=== PATIENT | male | born 1950 | race Caucasian/White ===

== ENCOUNTER → 2017-03-31 | Outpatient (CLI) | payer OTHER, BC ==
[~2017-03-31] MED LIST: ASPEC81 PO; KETO10TA PO; MULT-618 PO; OXYC-57 PO; OXYC-643 PO; RANI150T3 PO; VTMD1000 PO
--- NOTE | 2017-03-31 17:08 | DIAGNOSTIC IMAGING REPORT ---
LEFT THIGH MRI HISTORY: HAMSTRING INJURY; R/O AVULSION FROM ISCHIAL TECHNIQUE: Multiplanar multisequence MRI of the left thigh was performed without intravenous contrast. COMPARISON STUDY: None. FINDINGS: No fracture or dislocation within the left femur. 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 There is a full-thickness tear of the left hamstring tendon complex. This measures 2.6 cm of retraction. There is hemorrhage and fluid at the torn and retracted hamstring. There is also edema and intramuscular hemorrhage within the proximal hamstring muscles. There is fluid surrounding the left sciatic nerve. The left sciatic nerve demonstrates a normal signal intensity. Mild edema adjacent to the left groin muscles. There is subcutaneous edema within the left posterior thigh. No definite avulsion fracture identified at the ischial tuberosity. IMPRESSION: There is a full-thickness tear of the left hamstring tendon complex at its attachment which demonstrates 2.6 cm of retraction. No evidence for an avulsion fracture at the ischial tuberosity. Additional findings as described above. Electronically signed by: Reg Contreras M.D. 03/31/2017 5:07 PM Dictated Date/Time: 03/31/2017 5:02 PM
== END | disposition home or self-care (01) ==
LOC: C.MRIBC 15:18
DX: S76.312A Strain of muscle, fascia and tendon of the posterior muscle group at thigh level, left thigh, initial encounter (principal); X58.XXXA Exposure to other specified factors, initial encounter

== ENCOUNTER → 2017-04-03 | Outpatient (CLI) | payer OTHER, BC ==
[2017-04-03 17:17] LABS: BASO % 0.5 %; BASO ABS # 0.03 K/uL (0-0.2); COMPLETE YES; EOS % 4.6 %; HEMATOCRIT 39.2 % (42-52); IG% 0.2 %; LYMPH % 20.5 %; LYMPH ABS # 1.34 K/uL (1.2-3.4); MEAN CELL VOLUME 90.5 fL (80-100); MEAN CORPUSCULAR HEMOGLOBIN 30.7 pg (25-34); MEAN CORPUSCULAR HGB CONC 33.9 g/dl (32-36); MEAN PLATELET VOLUME 9.3 fL (7.4-10.4); NEUT % 60.2 %; PLATELET COUNT 247 K/uL (130-400); RED BLOOD COUNT 4.33 M/uL (4.7-6.1); WHITE BLOOD COUNT 6.55 K/uL (4.8-10.8)
[2017-04-03 17:34] LABS: POTASSIUM 4.7 mmol/L (3.5-5.1)
== END | disposition home or self-care (01) ==
LOC: C.LAB 15:58
PROVIDERS: ATTEND Orthopaedic Surgery Sports Medicine
DX: Z01.812 Encounter for preprocedural laboratory examination (principal); Z01.818 Encounter for other preprocedural examination

== ENCOUNTER → 2017-04-05 | Day surgery (SDC) | payer OTHER, BC ==
[2017-04-04 11:09] VITALS: Ht 179.1 cm; Wt 84.1 kg
[~2017-04-05] VITALS: Ht 179.1 cm; Wt 84.1 kg
[~2017-04-05] MED LIST changes: +BUPIVACAINE/EPINEPHRINE 0.5% MPF 1:200,000 30 ML VIAL ONE; +DEXAMETHASONE SOD INJ 4 MG/ML VIAL ONE; +EpHEDrine SULFATE 50MG/5ML SYR ONE; +FENTANYL CITRATE INJ 50 MCG/1 ML 2 ML VIAL ONE; +GLYCOPYRROLATE INJ 0.2 MG/ML VIAL ONE; +LACTATED RINGER'S 1000ML 1,000 ML IV SCH; +LIDOCAINE HCL 1% MPF 2 ML VIAL ONE; +LIDOCAINE HCL 2% 2 ML VIAL (20MG/ML) ONE; +MIDAZOLAM HCL 1 MG/ML 2ML VIAL ONE; +NEOSTIGMINE METHYLSULFATE 5 MG/5 ML SYR ONE; +ONDANSETRON INJ 2 MG/ML 2 ML VIAL IV ONE; +ONDANSETRON INJ 2 MG/ML 2 ML VIAL ONE; +OXYCODONE/ACETAMINOPHEN 5-325 TAB PO PRN; +PATIENT'S HEIGHT AND/OR WEIGHT NEEDED SCH; +PROPOFOL IV EMULSION 10 MG/ML 20 ML VIAL IV ONE; +ROCURONIUM BROMIDE 10 MG/ML 5 ML VIAL ONE; +ROPIVACAINE 0.5% 5 MG/ML 30 ML VIAL ONE; +SODIUM CHLORIDE 0.9% 1000ML 1,000 ML IV SCH; +VANCOMYCIN HCL 1000MG/20ML VIAL ONE; +VANCOMYCIN INJ 2,000 MG in SODIUM CHLORIDE 0.9% 500ML 500 ML IV SCH; +WATER, STERILE FOR INJ 10 ML VIAL ONE
--- NOTE | 2017-04-05 13:20 | History & Physical Bridge - [place] ---
H&P Re-Evaluation Bridge Note: I have examined the patient, reviewed the History & Physical and in the interval since the performance of the History & Physical I have noted the following changes of clinical significance: No changes noted
--- NOTE | 2017-04-05 16:13 | [facility] Post Operative Brief Note ---
Immediate Operative Summary Operative Date April 05, 2017. Pre-Operative Diagnosis Left Proximal Hamstring Rupture Post-Operative Diagnosis Same Procedure(s) Performed Left Proximal Hamstring Rupture Repair Surgeon Dr. Mercedes Campaign Fundraiser Surgeon(s) Jessy Strauss PA-C Estimated Blood Loss 30 ML Findings Left Proximal Hamstring Avulsion Specimens None Anesthesia General Complication(s) None Disposition Recovery Room / PACU
--- NOTE | 2017-04-05 16:15 | Discharge Instructions-SurgCtr ---
Discharge Instructions Date of Service April 05, 2017. Visit Reason for Visit: Left Proximal Hamstring Rupture Discharge Discharge Diagnosis / Problem: left proximal hamstring rupture Discharge Goals Goal(s): Improve function, Therapeutic intervention Activity Recommendations Activity Limitations: per Instructions/Follow-up section Weightbearing Status: Left non-weightbearing Anesthesia . Post Anesthesia Instructions: If you have had General Anesthesia or IV Sedation: * Do not drive today. * Resume driving when surgeon permits. * Do not make important decisions or sign legal documents today. * Call surgeon for: 1. Temperature elevations greater than 101 degrees F. 2. Uncontrollable pain. 3. Excessive bleeding. 4. Persistent nausea and vomiting. 5. Medication intolerance (nausea, vomiting or rash). * For nausea and vomiting use only clear liquids such as: tea, soda, bouillon until nausea subsides, then gradually increase diet as tolerated. * If you have any concerns or questions, call your surgeon's office. If physician is unavailable and it is an emergency, call 911 or go to the nearest emergency room. . Instructions / Follow-Up Instructions / Follow-Up MEDICATIONS: * Resume previous medications unless instructed otherwise by your surgeon. * Always take pain medication on a full stomach or with food to avoid upset stomach. * Do not drink alcohol or drive while taking narcotics. * Ibuprofen or Tylenol may be taken if narcotic not needed. SPECIAL CARE INSTRUCTIONS: __ None __ Keep extremity elevated and iced x 48 hours; apply ice 20-30 minutes 8-10 times/day. May remove at night. _x_ Crutches __ May discard when able _x_ Brace/Post-op shoe _x_ 24 hrs/day __ Remove at night _x_ Dressing __ Maintain until seen in office, may shower with plastic over site x__ Remove dressings in 48 hours and then may shower x__ Cover incisions with band-aids after showering __ Do not remove steri-strips Call physician if chills or temperature rises above 102 degrees or pain unrelieved by prescribed pain medications. Office [phone] follow up in 2 weeks Diet Recommendations Home Diet: resume previous diet Procedures Procedures Performed: Left Proximal Hamstring Rupture Repair Pending Studies Studies pending at discharge: no Medical Emergencies . Who to Call and When: Medical Emergencies: If at any time you feel your situation is an emergency, please call 911 immediately. . Non-Emergent Contact Non-Emergency issues call your: Surgeon . . "Provider Documentation" section prepared by Tyrone Strauss. .
[2017-04-05 16:46] VITALS: TEMP 36.6
--- NOTE | 2017-04-05 16:55 | Anesthesia Progress Nt - [facility] ---
Anesthesia Post Op Note Date & Time April 05, 2017 at 16:55 Vital Signs Pain Intensity: 3 Vital Signs Past 12 Hours Date Time Temp Pulse Resp B/P Pulse Ox O2 Delivery O2 Flow Rate FiO2 04/05/17 16:41 124/78 04/05/17 16:40 68 4 04/05/17 16:40 67 4 96 04/05/17 16:39 36.6 69 12 124/78 96 Room Air 04/05/17 16:36 126/80 04/05/17 16:35 71 9 04/05/17 16:35 71 9 95 04/05/17 16:31 132/76 04/05/17 16:30 68 16 99 04/05/17 16:30 70 16 04/05/17 16:26 124/73 04/05/17 16:25 70 23 04/05/17 16:25 70 23 100 04/05/17 16:21 124/73 04/05/17 16:20 70 12 04/05/17 16:20 70 12 100 04/05/17 16:16 123/78 04/05/17 16:15 75 18 04/05/17 16:15 74 18 100 04/05/17 16:11 126/82 04/05/17 16:10 36.7 73 16 126/82 100 Mask 6 04/05/17 16:10 76 99 04/05/17 16:10 76 04/05/17 11:04 36.4 79 18 123/71 99 Room Air Notes Mental Status: alert / awake / arousable, participated in evaluation Pt Amnestic to Procedure: Yes Nausea / Vomiting: adequately controlled Pain: adequately controlled Airway Patency, RR, SpO2: stable & adequate BP & HR: stable & adequate Hydration State: stable & adequate Anesthetic Complications: no major complications apparent
[2017-04-05 17:39] VITALS: BP 132/72; O2SAT 97
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
== END | disposition home or self-care (01) ==
LOC: X.SURG 10:48
PROVIDERS: ATTEND Orthopaedic Surgery Sports Medicine
DX: S76.312A Strain of muscle, fascia and tendon of the posterior muscle group at thigh level, left thigh, initial encounter (principal); V19.9XXA Pedal cyclist (driver) (passenger) injured in unspecified traffic accident, initial encounter; G47.33 Obstructive sleep apnea (adult) (pediatric); Z85.828 Personal history of other malignant neoplasm of skin; Z98.890 Other specified postprocedural states; Z80.1 Family history of malignant neoplasm of trachea, bronchus and lung

== ENCOUNTER → 2017-12-26 | Outpatient (CLI) | payer OTHER, BC ==
[~2017-12-26] MED LIST changes: -BUPIVACAINE/EPINEPHRINE 0.5% MPF 1:200,000 30 ML VIAL ONE; -DEXAMETHASONE SOD INJ 4 MG/ML VIAL ONE; -EpHEDrine SULFATE 50MG/5ML SYR ONE; -FENTANYL CITRATE INJ 50 MCG/1 ML 2 ML VIAL ONE; -GLYCOPYRROLATE INJ 0.2 MG/ML VIAL ONE; -KETO10TA PO; -LACTATED RINGER'S 1000ML 1,000 ML IV SCH; -LIDOCAINE HCL 1% MPF 2 ML VIAL ONE; -LIDOCAINE HCL 2% 2 ML VIAL (20MG/ML) ONE; -MIDAZOLAM HCL 1 MG/ML 2ML VIAL ONE; -NEOSTIGMINE METHYLSULFATE 5 MG/5 ML SYR ONE; -ONDANSETRON INJ 2 MG/ML 2 ML VIAL IV ONE; -ONDANSETRON INJ 2 MG/ML 2 ML VIAL ONE; -OXYC-57 PO; -OXYC-643 PO; -OXYCODONE/ACETAMINOPHEN 5-325 TAB PO PRN; -PATIENT'S HEIGHT AND/OR WEIGHT NEEDED SCH; -PROPOFOL IV EMULSION 10 MG/ML 20 ML VIAL IV ONE; -ROCURONIUM BROMIDE 10 MG/ML 5 ML VIAL ONE; -ROPIVACAINE 0.5% 5 MG/ML 30 ML VIAL ONE; -SODIUM CHLORIDE 0.9% 1000ML 1,000 ML IV SCH; -VANCOMYCIN HCL 1000MG/20ML VIAL ONE; -VANCOMYCIN INJ 2,000 MG in SODIUM CHLORIDE 0.9% 500ML 500 ML IV SCH; -WATER, STERILE FOR INJ 10 ML VIAL ONE
[2017-12-26 09:47] LABS: HEMOGLOBIN A1C 5.7 % (4.5-5.6)
== END | disposition home or self-care (01) ==
LOC: C.LAB 07:06
PROVIDERS: ATTEND Family Medicine
DX: M25.50 Pain in unspecified joint (principal); Z95.2 Presence of prosthetic heart valve; N40.0 Benign prostatic hyperplasia without lower urinary tract symptoms

== ENCOUNTER 2018-01-30 10:43 | Emergency (ER) | payer OTHER, BC ==
[~2018-01-30] VITALS: Ht 177.8 cm; Wt 92.9 kg
[2018-01-30 10:51] VITALS: TEMP 36.4; Ht 177.8 cm; Wt 92.9 kg
[2018-01-30] MEDS ORDERED: ASPI-435 PO (11:28)
[2018-01-30] MEDS ORDERED: DOCU-94 PO (11:28)
[2018-01-30] MEDS ORDERED: SODIUM CHLORIDE 0.9% 1000ML 1,000 ML IV ONE (11:57)
[2018-01-30] MEDS ORDERED: SODIUM CHLORIDE 0.9% 1000ML 1,000 ML IV STA (11:57)
[2018-01-30] MEDS ORDERED: OPTIRAY 320 IV PRN (12:15)
[2018-01-30 12:16] LABS: BASO % 0.4 %; BASO ABS # 0.03 K/uL (0-0.2); EOS % 1.7 %; EOS ABS # 0.14 K/uL (0-0.5); HEMATOCRIT 44.4 % (42-52); HEMOGLOBIN 15.9 g/dL (14.0-18.0); IG# 0.01 K/uL (0.00-0.02); LYMPH % 19.5 %; LYMPH ABS # 1.61 K/uL (1.2-3.4); MEAN CELL VOLUME 88.4 fL (80-100); MEAN CORPUSCULAR HEMOGLOBIN 31.7 pg (25-34); MEAN CORPUSCULAR HGB CONC 35.8 g/dl (32-36); MEAN PLATELET VOLUME 9.6 fL (7.4-10.4); MONO % 9.1 %; MONO ABS # 0.75 K/uL (0.11-0.59); NEUT % 69.2 %; NEUT ABS # 5.72 K/uL (1.4-6.5); PLATELET COUNT 202 K/uL (130-400); RED CELL DISTRIBUTION WIDTH CV 13.4 % (11.5-14.5); RED CELL DISTRIBUTION WIDTH SD 43.3 fL (36.4-46.3); WHITE BLOOD COUNT 8.26 K/uL (4.8-10.8)
[2018-01-30 12:34] LABS: CALCIUM 9.5 mg/dl (8.5-10.1); CREATININE 1.17 mg/dl (0.60-1.40); POTASSIUM 5.1 mmol/L (3.5-5.1)
[2018-01-30 12:36] LABS: TOTAL PROTEIN 6.9 gm/dl (6.4-8.2)
--- NOTE | 2018-01-30 13:27 | DIAGNOSTIC IMAGING REPORT ---
LUMBAR SPINE WITHOUT CT DOSE: HISTORY: Pain. Neuropathy. eval for spinal disease TECHNIQUE: Multiaxial CT images of the lumbar spine were performed and reformatted in the sagittal and coronal plane without the use of contrast. A dose lowering technique was utilized adhering to the principles of ALARA. COMPARISON: None. FINDINGS: No fractures. No subluxation. Paraspinal soft tissues are unremarkable. No evidence for significant spinal stenosis based on CT criteria. IMPRESSION: Negative study. The above report was generated using voice recognition software. It may contain grammatical, syntax or spelling errors. Electronically signed by: Rene Martínez M.D. 01/30/2018 1:26 PM Dictated Date/Time: 01/30/2018 1:22 PM
--- NOTE | 2018-01-30 13:41 | DIAGNOSTIC IMAGING REPORT ---
ABD/PELVIS IV CONTRAST ONLY CLINICAL HISTORY: 67 years-old Male presenting with eval for bowel obstruction, constipation. TECHNIQUE: Multidetector CT of the abdomen and pelvis was performed after the administration of intravenous contrast. IV contrast: 119 mL of Optiray 320. A dose lowering technique was used consistent with the principles of ALARA (as low as reasonably achievable). COMPARISON: None. CT DOSE (mGy.cm): The estimated cumulative dose is 541.28 mGy.cm. FINDINGS: Scientist Propagator topogram: Median sternotomy wires. Lung bases: Minimal basilar opacities, likely atelectasis. Biatrial enlargement. Mitral annular calcification. No pericardial or pleural effusion. Liver: Normal morphology. No liver lesion. Patent hepatic vasculature. Biliary: No intrahepatic or extrahepatic biliary ductal dilatation. Gallbladder contains gallstones. Pancreas: Normal. Spleen: Normal. Adrenal glands: Normal. Kidneys and ureters: Well-defined hypodensities in the kidneys likely simple cysts. Malrotation of the right kidney with an anteriorly oriented right renal pelvis. Nonobstructing 4 mm calculi in the right kidney at the interpolar region and lower pole. Mild right urothelial thickening. Ptotic/pelvic left kidney, which is also malrotated with an anteriorly oriented left renal pelvis. Prominent left parapelvic cyst. Nonobstructing 3 mm calculi in the left kidney. Bladder: Decompressed with a Mckenna catheter. Foci of intraluminal gas related to catheterization. Mild perivesicular fat stranding. Pelvic organs: Prostate and seminal vesicles normal. Bowel: Large stool burden in the rectum. No significant rectal wall thickening. Mild stool burden in the remainder of the colon, which is normal caliber. No bowel obstruction. Peritoneal cavity: No free fluid or intraperitoneal gas. Lymph nodes: No enlarged lymph nodes in the abdomen or pelvis. Vasculature: Atherosclerosis of the normal caliber abdominal aorta. IVC patent. 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 Abdominal wall: Evidence of prior right inguinal hernia repair with a recurrent fat-containing hernia. Fat-containing right inguinal hernia. Musculoskeletal: Normal. IMPRESSION: 1. Large stool burden in the rectum. Consider disimpaction. No bowel obstruction. Mild stool burden in the remainder of the colon. 2. 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 Bilateral nonobstructing renal calculi. Subtle right urothelial thickening could suggest chronic inflammation or upper tract infection. Correlate with urinalysis. 3. Possible perivesicular inflammatory change. Again, correlate with urinalysis to exclude infectious cystitis. Alternatively, the appearance may be due to decompression with a Mcknena catheter and/or adjacent postsurgical changes from prior inguinal hernia repair on the left. Electronically signed by: Humberto Tomlinson M.D. 01/30/2018 1:40 PM Dictated Date/Time: 01/30/2018 1:24 PM
[2018-01-30 15:04] VITALS: BP 129/70; PULSE 64; O2SAT 96
--- NOTE | 2018-01-30 15:05 | EMERGENCY ROOM VISIT NOTE ---
History Report prepared by Hayden: Damaso Jorgensen Under the Supervision of: Dr. He Gonzalez M.D. First contact with patient: 11:40 Chief Complaint: UNABLE TO VOID Stated Complaint: SEVERE ABDONIMAL PAIN, CANT DEFECATE OR URINATE Nursing Triage Summary: pt reports not able to urine except dribbles this am last emptied bladder last evening. no bm since yesterday. pt reports he was seen by pcp 1 month ago blood work was good not dx with enlarged prostate History of Present Illness The patient is a 67 year old male who presents to the Emergency Room with complaints of constant inability to urinate or defecate beginning today. He states that he was able to urinate a very small amount today, but has not been able to defecate at all. The patient also complains of rectal spasms, abdominal pain, and bilateral leg & lower back numbness. His lower back and bilateral leg numbness began upon arrival to the ED. He denies any back pain, fevers, or chills. Nothing has improved his symptoms. The patient denies any recent falls or injuries (other than two weeks ago, where he fell on his upper back). He has been able to walk, but only "slowly". He went for a several mile walk this morning as normal. The patient states that he attempted to go to the bathroom upon returning form his walk, which is normally when he goes to the bathroom each day. He adds that he has been having increasing difficulty with defecation over the past week each day. He notes that he has a history of hypotension for which he was told to drink coffee regularly. 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 Source of History: patient, spouse/significant other Onset: Today Quality: other (inability to urinate or defecate) Timing: constant Modifying Factors (Relieving): other (none) Associated Symptoms: + abdominal pain, + numbness (lower back and bilateral legs) Note: The patient also complains of rectal spasms. Review of Systems See HPI for pertinent positives & negatives. A total of 10 systems reviewed and were otherwise negative. Past Medical & Surgical Medical Problems: (1) Bee sting allergy (2) Heart disease (3) History of kidney stones (4) Incisional hernia (5) Melanoma Surgical Problems: (1) H/O mitral valve replacement (2) History of aortic valve repair (3) History of mitral valve repair Old medical records were reviewed. Nurse's notes were reviewed and I agree with. Family History Diabetes mellitus FH: cancer FH: heart disease FH: lung disease Hypertension Kidney disease Kidney stones Social History Smoking Status: Never Smoker Alcohol Use: occasionally Drug Use: none Marital Status: Housing Status: lives with family Occupation Status: employed Current/Historical Medications Scheduled Aspirin (Aspirin 81), 81 MG PO DAILY Cholecalciferol (Vitamin D3), 1,000 INTER.UNIT PO QAM Docusate Sodium (Colace), 100 MG PO DAILY Multiple Vitamins W/ Minerals (Centrum Silver Ultra Mens), 1 TABLET PO QAM Ranitidine Hcl (Zantac), 150 MG PO BID Allergies Coded Allergies: BEE STING (Verified Allergy, Severe, RASH, DIZZY, SOB, 01/30/18) Cefuroxime (Verified Allergy, Severe, RASH AND DIFFICULTY BREATHING, ) Physical Exam Vital Signs Date Time Temp Pulse Resp B/P (MAP) Pulse Ox O2 Delivery O2 Flow Rate FiO2 01/30/18 15:04 64 18 129/70 96 01/30/18 14:18 66 18 135/74 96 Room Air 01/30/18 12:15 71 18 114/78 97 Room Air 01/30/18 10:51 36.4 70 18 154/84 99 Room Air Physical Exam General: Non-ill appearing older male in no acute distress. Appears uncomfortable. Complaining of urge to defecate. HEENT: Normal cephalic atraumatic. Pupils are equal round and reactive to light. Extraocular movements are intact. Oropharynx is pink with moist mucous membranes. No swelling of the mouth lips or tongue. Neck: Supple with a midline trachea. No meningeal signs or stiffness, no JVD or bruits. No Stridor. Chest: Clear to auscultation bilaterally. No wheezes or rhonchi. No increased work of breathing. Heart: regular rate and rhythm. Abdomen: Soft, nondistended without rebound guarding or rigidity. Mild lower tenderness. Scars from previous abdominal surgery. No redness or warmth. Mckenna catheter in place draining yellow urine. Rectal: Normal sensation in the perirectal area. Normal tone. There is a large amount of stool which was manually disimpacted and was brown and nonbloody and guaiac negative Extremities: No cyanosis clubbing or edema. No calf tenderness or assymetry Spine/Back. Non tender to palpation. No CVA tenderness Skin: Good turgor without rashes. Neurologic exam: Cranial nerves two through 12 are intact. Motor and sensation are intact and symmetrical throughout. Medical Decision & Procedures ER Provider Diagnostic Interpretation: Radiology results as stated below per my review and radiologist interpretation: LUMBAR SPINE WITHOUT FINDINGS: No fractures. No subluxation. Paraspinal soft tissues are unremarkable. No evidence for significant spinal stenosis based on CT criteria. IMPRESSION: Negative study. The above report was generated using voice recognition software. It may contain grammatical, syntax or spelling errors. Electronically signed by: Rene Martínez M.D. 01/30/2018 1:26 PM ABD/PELVIS IV CONTRAST ONLY FINDINGS: [employer] Head topogram: Median sternotomy wires. Lung bases: Minimal basilar opacities, likely atelectasis. Biatrial enlargement. Mitral annular calcification. No pericardial or pleural effusion. Liver: Normal morphology. No liver lesion. Patent hepatic vasculature. Biliary: No intrahepatic or extrahepatic biliary ductal dilatation. Gallbladder contains gallstones. Pancreas: Normal. Spleen: Normal. Adrenal glands: Normal. Kidneys and ureters: Well-defined hypodensities in the kidneys likely simple cysts. Malrotation of the right kidney with an anteriorly oriented right renal pelvis. Nonobstructing 4 mm calculi in the right kidney at the interpolar region and lower pole. Mild right urothelial thickening. Ptotic/pelvic left kidney, which is also malrotated with an anteriorly oriented left renal pelvis. Prominent left parapelvic cyst. Nonobstructing 3 mm calculi in the left kidney. Bladder: Decompressed with a Mckenna catheter. Foci of intraluminal gas related to catheterization. Mild perivesicular fat stranding. Pelvic organs: Prostate and seminal vesicles normal. Bowel: Large stool burden in the rectum. No significant rectal wall thickening. Mild stool burden in the remainder of the colon, which is normal caliber. No bowel obstruction. Peritoneal cavity: No free fluid or intraperitoneal gas. Lymph nodes: No enlarged lymph nodes in the abdomen or pelvis. Vasculature: Atherosclerosis of the normal caliber abdominal aorta. IVC patent. 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 Abdominal wall: Evidence of prior right inguinal hernia repair with a recurrent fat-containing hernia. Fat-containing right inguinal hernia. Musculoskeletal: Normal. IMPRESSION: 1. Large stool burden in the rectum. Consider disimpaction. No bowel obstruction. Mild stool burden in the remainder of the colon. 2. 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 Bilateral nonobstructing renal calculi. Subtle right urothelial thickening could suggest chronic inflammation or upper tract infection. Correlate with urinalysis. 3. Possible perivesicular inflammatory change. Again, correlate with urinalysis to exclude infectious cystitis. Alternatively, the appearance may be due to decompression with a Mckenna catheter and/or adjacent postsurgical changes from prior inguinal hernia repair on the left. Electronically signed by: Humberto Tomlinson M.D. 01/30/2018 1:40 PM Laboratory Results 01/30/18 12:05 Red Blood Count 5.02, Mean Corpuscular Volume 88.4, Mean Corpuscular Hemoglobin 31.7, Mean Corpuscular Hemoglobin Concent 35.8, Mean Platelet Volume 9.6, Neutrophils (%) (Auto) 69.2, Lymphocytes (%) (Auto) 19.5, Monocytes (%) (Auto) 9.1, Eosinophils (%) (Auto) 1.7, Basophils (%) (Auto) 0.4, Neutrophils # (Auto) 5.72, Lymphocytes # (Auto) 1.61, Monocytes # (Auto) 0.75, Eosinophils # (Auto) 0.14, Basophils # (Auto) 0.03 01/30/18 12:05 Test 01/30/18 10:56 01/30/18 12:05 Urine Color YELLOW Urine Appearance CLEAR (CLEAR) Urine pH 5.0 (4.5-7.5) Urine Specific [place] 1.011 (1.000-1.030) Urine Protein NEG (NEG) Urine Glucose (UA) NEG (NEG) Urine Ketones NEG (NEG) Urine Occult Blood NEG (NEG) Urine Nitrite NEG (NEG) Urine Bilirubin NEG (NEG) Urine Urobilinogen NEG (NEG) Urine Leukocyte Esterase NEG (NEG) White Blood Count 8.26 K/uL (4.8-10.8) Red Blood Count 5.02 M/uL (4.7-6.1) Hemoglobin 15.9 g/dL (14.0-18.0) Hematocrit 44.4 % (42-52) Mean Corpuscular Volume 88.4 fL (80-100) Mean Corpuscular Hemoglobin 31.7 pg (25-34) Mean Corpuscular Hemoglobin Concent 35.8 g/dl (32-36) Platelet Count 202 K/uL (130-400) Mean Platelet Volume 9.6 fL (7.4-10.4) Neutrophils (%) (Auto) 69.2 % Lymphocytes (%) (Auto) 19.5 % Monocytes (%) (Auto) 9.1 % Eosinophils (%) (Auto) 1.7 % Basophils (%) (Auto) 0.4 % Neutrophils # (Auto) 5.72 K/uL (1.4-6.5) Lymphocytes # (Auto) 1.61 K/uL (1.2-3.4) Monocytes # (Auto) 0.75 K/uL (0.11-0.59) Eosinophils # (Auto) 0.14 K/uL (0-0.5) Basophils # (Auto) 0.03 K/uL (0-0.2) RDW Standard Deviation 43.3 fL (36.4-46.3) RDW Coefficient of Variation 13.4 % (11.5-14.5) Immature Granulocyte % (Auto) 0.1 % Immature Granulocyte # (Auto) 0.01 K/uL (0.00-0.02) Anion Gap 9.0 mmol/L (3-11) Est Creatinine Clear Calc Drug Dose 68.2 ml/min Estimated GFR () 73.3 Estimated GFR (Non- 63.2 BUN/Creatinine Ratio 17.3 (10-20) Calcium Level 9.5 mg/dl (8.5-10.1) Total Bilirubin 1.0 mg/dl (0.2-1) Direct Bilirubin 0.2 mg/dl (0-0.2) Aspartate Amino Transf (AST/SGOT) 25 U/L (15-37) Alanine Aminotransferase (ALT/SGPT) 30 U/L (12-78) Alkaline Phosphatase 90 U/L (45-117) Total Protein 6.9 gm/dl (6.4-8.2) Albumin 4.0 gm/dl (3.4-5.0) Lipase 181 U/L (73-393) Laboratory studies as stated above per my review. Medications Administered Medications (Trade) Dose Ordered Sig/Stewart Route Start Time Stop Time Status Last Admin Dose Admin Sodium Chloride 1,000 ml @ 999 mls/hr Q1H1M STAT IV 01/30/18 11:57 01/30/18 12:57 DC 01/30/18 12:14 999 MLS/HR Sodium Chloride 1,000 ml @ 200 mls/hr Q5H ONCE IV 01/30/18 11:57 01/30/18 16:36 DC 01/30/18 11:57 200 MLS/HR ED Course 1141: Past medical records reviewed. The patient was evaluated in room B2, and a complete history and physical examination were performed. 1157: Ordered Sodium Chloride 1000 ml @ 200 mls/hr IV, Sodium Chloride 1000 ml @ 999 mls/hr IV. 1325: I reassessed the patient. He feels better. 1442: Upon reevaluation, the patient is resting comfortably. I discussed the results and treatment plan with him. He verbalized agreement of the treatment plan. The patient was discharged home. Medical Decision Differentials include, but are not limited to; constipation, bowel obstruction, infection, UTI, cauda equina syndrome, and electrolyte or metabolic abnormality. This patient comes in as described above. He was complaining of feeling like he was constipated as well as may have difficulty urinating. This came on abruptly. A Mckenna catheter was placed prior to my arrival. he states was complaining of severe rectal pain and had a hard time sitting down. He has had no trauma. Initially told me he felt he was tingling in his legs but then felt like it was just from the way he was sitting. he has no numbness or weakness. On exam, he has no evidence of cauda equina syndrome. IV access was established hydrated with IV normal saline. He has no white count or fever to suggest infection. No acute electrolyte or metabolic abnormalities. His urine does not suggest infection. I did a CAT scan of his abdomen and lumbar spine lumbar spine was unremarkable. The abdomen shows constipation and rectal impaction. I did a rectal exam and manually disimpacted him a large amount and he said he felt 100% better. It was guaiac negative he did have normal rectal tone. I talked to the patient and his at length he feels that his symptoms were from being constipated now he feels better. I talked about the possibility of MRI do not think is likely a neurologic reason. he is going to go home if if this recurs or any changes in her return to the ER. Again at this point he has no neurologic deficits. He will be discharged home and is encouraged to use a stool softener and return if any new problems or concerns. He is happy to plan discharged to home. Medication Reconcilliation Current Medication List: was personally reviewed by me Blood Pressure Screening Patient's blood pressure: Normal blood pressure Blood pressure disposition: Did not require urgent referral Impression Primary Impression: Constipation Additional Impressions: Abdominal pain Rectal pain Scribe Attestation The scribe's documentation has been prepared under my direction and personally reviewed by me in its entirety. I confirm that the note above accurately reflects all work, treatment, procedures, and medical decision making performed by me. Departure Information Dispostion Home / Self-Care Referrals Antonino Jones M.D. (PCP) Forms HOME CARE DOCUMENTATION FORM, IMPORTANT VISIT INFORMATION, WORK / SCHOOL INSTRUCTIONS Patient Instructions My [facility] NCR [facility] Additional Instructions Rest. Drink plenty of fluids. Ensure that your bowels are moving and use a stool softener if needed Return if: Any further problems with bowel or bladder, numbness or weakness, fever chills, any new problems or concerns Follow-up with your doctor next couple days for recheck Problem Qualifiers
== END 2018-01-30 15:05 | disposition home or self-care (01) ==
LOC: C.EDB 10:45
DX: K59.00 Constipation, unspecified (principal); R10.9 Unspecified abdominal pain; K62.89 Other specified diseases of anus and rectum; R33.9 Retention of urine, unspecified; Z91.030 Bee allergy status; Z95.2 Presence of prosthetic heart valve; Z85.820 Personal history of malignant melanoma of skin; Z87.442 Personal history of urinary calculi; Z79.82 Long term (current) use of aspirin; Z83.3 Family history of diabetes mellitus; Z82.49 Family history of ischemic heart disease and other diseases of the circulatory system; Z84.1 Family history of disorders of kidney and ureter; Z88.1 Allergy status to other antibiotic agents

== ENCOUNTER 2018-12-31 18:26 | Observation (INO) ==
[2018-12-31] MEDS ORDERED: SODIUM CHLORIDE 0.9% 1000ML 1,000 ML IV SCH (18:45)
[2018-12-31 19:29] LABS: Albumin Level 3.6 gm/dl (3.4-5.0); BUN Creatinine Ratio 25.9 (10-20); Calcium 8.5 mg/dl (8.5-10.1); Creatinine Clr Calc Pharmacy 67.6 ml/min; Est GFR (Non-African American) 71.6
[2018-12-31 19:34] LABS: Albumin Globulin Ratio 1.1 (0.9-2); Bilirubin,Total 0.7 mg/dl (0.2-1); Globulin 3.3 gm/dl (2.5-4.0); Potassium 4.3 mmol/L (3.5-5.1); Total Protein 6.9 gm/dl (6.4-8.2)
[2018-12-31 20:13] LABS: Basophils # (auto) 0.03 K/uL (0-0.2); Basophils % (auto) 0.5 %; Eosinophils % (auto) 4.7 %; Hematocrit (blood only) 44.7 % (42-52); Hemoglobin 15.4 g/dL (14.0-18.0); Immature Granulocytes # (auto) 0.01 K/uL (0.00-0.02); Immature Granulocytes % (auto) 0.2 %; Lymphocytes # (auto) 1.94 K/uL (1.2-3.4); Lymphocytes % (auto) 30.1 %; Mean Corpuscular Hgb Conc 34.5 g/dL (32-36); Mean Corpuscular Volume 90.1 fL (80-100); Monocytes # (auto) 0.78 K/uL (0.11-0.59); Monocytes % (auto) 12.1 %; Neutrophils # (auto) 3.39 K/uL (1.4-6.5); Neutrophils % (auto) 52.4 %; Platelet Count 208 K/uL (130-400); RDW Coefficient of Variation 13.5 % (11.5-14.5); RDW Standard Deviation 44.5 fL (36.4-46.3); Red Blood Count 4.96 M/uL (4.7-6.1); White Blood Count 6.45 K/uL (4.8-10.8)
[2018-12-31 20:28] LABS: Partial Thromboplastin Time 26.6 Seconds (21.0-31.0); Prothrombin Time 10.1 Seconds (9.0-12.0)
[2018-12-31 21:09] LABS: Appearance Urine Clear (Clear); Bilirubin Urine Negative (Negative); Blood Urine Negative (Negative); Color Urine Yellow; Glucose Urine UA Negative (Negative); Ketones Urine Negative (Negative); Leukocyte Esterase Urine Negative (Negative); Nitrite Urine Negative (Negative); Protein Urine Negative (Negative); Specific Gravity Urine 1.015 (1.000-1.030); Urobilinogen Urine Negative (Negative)
--- NOTE | 2018-12-31 21:20 | History & Physical Report ---
Date of Service December 31, 2018 Assessment & Plan (1) Subdural hematoma: Subdural hematoma-- The patient will be placed in observation overnight on telemetry unit. Dr. Martinez from the ED has spoken with Dr. Duong from [facility] neurosurgery who felt the patient could stay at [facility]. Dr. Martinez then spoke with Dr. Martinez from [facility] neurology, who also felt the patient could be observed at [facility]. Patient will get a repeat CT scan of the head in the morning. He knows to report any change in symptoms or if new symptoms should they develop in the interim. Present on Admission?: Yes History of Present Illness Chief Complaint: The patient presents to the emergency department after being referred by his PCP Dr. Jones for an abnormal CT of head which showed a left frontal subdural hematoma. Primary Care Provider: Antonino Jones The patient is a 68-year-old male who was skiing and previous [place] 6 days ago when he slipped and went backwards, landing on his shoulder and then his head. He went to see his PCP Dr. Emerson today, who ordered a CT scan, that showed a left frontal subdural hematoma, and referred the patient to the ED for assessment. The patient overall has little complaints, he said he feels a little funny, and has some cervical occipital pain, which has improved. Allergies Allergy/AdvReac Type Severity Reaction Status Date / Time bee venom protein (honey bee) Allergy Severe RASH, Verified 12/31/18 20:12 DIZZY, SOB cefuroxime Allergy Severe RASH AND Verified 12/31/18 20:12 DIFFICULTY BREATHING Home Medications Home Medications Medication Instructions Recorded Confirmed Type aspirin [Aspir-81] 81 mg PO DAILY 12/31/18 12/31/18 History cholecalciferol (vitamin D3) 1,000 unit PO DAILY 12/31/18 12/31/18 History [Vitamin D3] tjkrujni-yeb-JG-lycopen-lutein 1 tab PO DAILY 12/31/18 12/31/18 History [Centrum Silver Ultra Men's] Past Med/Surg History Medical History Bee sting allergy (Chronic) Heart disease (Chronic) Incisional hernia (Resolved) History of kidney stones (Chronic) Sleep apnea Surgical History History of mitral valve repair (Resolved) History of aortic valve repair (Resolved) H/O mitral valve replacement (Resolved) Family History Other Family history non-contributory Social History Current Living Situation: Spouse Other Information That Helps Us Care for You: No Feels Safe at Home: Yes Safety Concerns: Feels Safe At This Time Smoking Status: Never smoker Do You Dip or Chew Tobacco: No Second Hand Exposure: No Tobacco Cessation Education Requested by Patient: No Hx Alcohol Use: Yes Alcohol type: beer Alcohol Intake Frequency: a few times a week Hx Substance Use: No Beliefs That Will Affect Care: None Preferred Language: Setswana Communication Ability: Effective Helper Teacher Required: No Review of Systems The patient denies chest pain, palpitations, shortness of breath, dyspnea on exertion, cough, lower extremity swelling, sore throat, fevers, chills, sweats, weight change, fatigue, nausea, vomiting, diarrhea , constipation, abdominal pain, pelvic pain, blood in urine or stool, dysuria, urinary frequency or urgency, memory loss, loss of consciousness, rash, abnormal bruising or bleeding, imbalance, focal or generalized weakness, numbness or tingling in arms or legs, generalized arthralgias or myalgias, or night sweats. The review of systems is otherwise negative other than for that already noted above, and at least 10 systems have been reviewed. Physical Exam 2 Vital Signs (Past 24 Hours): Last Vital Signs Temp 36.8 C 12/31/18 18:45 Pulse 73 12/31/18 20:31 Resp 20 12/31/18 20:31 BP 141/83 H 12/31/18 20:30 Pulse Ox 98 12/31/18 20:31 Physical Exam: The patient is awake, alert and oriented 3, well developed and well nourished, normocephalic and atraumatic, lying in bed and in no acute distress. HEENT--PERRL, EOMI, mucous membranes and oropharynx dry. Neck--supple. No JVD. No bruits. Thyroid normal, trachea midline, no adenopathy. Heart--normal S1 and S2. No murmurs, rubs or gallops. Lungs--clear bilaterally, no respiratory distress, no accessory muscle use. Abdomen--normal bowel sounds and soft. Nontender. Nondistended, no hernias or masses, no organomegaly. Extremities--no cyanosis or clubbing. No edema. There are good distal pulses b/ l. Dermatologic--normal skin turgor, normal color, no abnormal lymph nodes, no rash. Neurologic--cranial nerves II through XII grossly intact. Rheumatologic--normal range of motion. Psychiatric--normal affect. Results & Data Laboratory Results Laboratory Results WBC 6.45 K/uL (4.8-10.8) 12/31/18 18:55 RBC 4.96 M/uL (4.7-6.1) 12/31/18 18:55 Hgb 15.4 g/dL (14.0-18.0) 12/31/18 18:55 Hct 44.7 % (42-52) 12/31/18 18:55 MCV 90.1 fL (80-100) 12/31/18 18:55 MCH 31.0 pg (25-34) 12/31/18 18:55 MCHC 34.5 g/dL (32-36) 12/31/18 18:55 RDW Std Deviation 44.5 fL (36.4-46.3) 12/31/18 18:55 RDW Coeff of Andrea 13.5 % (11.5-14.5) 12/31/18 18:55 Plt Count 208 K/uL (130-400) 12/31/18 18:55 MPV 10.0 fL (7.4-10.4) 12/31/18 18:55 Immature Gran % (Auto) 0.2 % 12/31/18 18:55 Neut % (Auto) 52.4 % 12/31/18 18:55 Lymph % (Auto) 30.1 % 12/31/18 18:55 [place]y % (Auto) 12.1 % 12/31/18 18:55 Eos % (Auto) 4.7 % 12/31/18 18:55 Baso % (Auto) 0.5 % 12/31/18 18:55 Immature Gran # (Auto) 0.01 K/uL (0.00-0.02) 12/31/18 18:55 Neut # (Auto) 3.39 K/uL (1.4-6.5) 12/31/18 18:55 Lymph # (Auto) 1.94 K/uL (1.2-3.4) 12/31/18 18:55 Posey # (Auto) 0.78 K/uL (0.11-0.59) H 12/31/18 18:55 Eos # (Auto) 0.30 K/uL (0-0.5) 12/31/18 18:55 Baso # (Auto) 0.03 K/uL (0-0.2) 12/31/18 18:55 PT 10.1 Seconds (9.0-12.0) 12/31/18 19:59 INR 1.0 (0.9-1.1) 12/31/18 19:59 APTT 26.6 Seconds (21.0-31.0) 12/31/18 19:59 PTT Ratio 1.0 12/31/18 19:59 Sodium 138 mmol/L (136-145) 12/31/18 18:55 Potassium 4.3 mmol/L (3.5-5.1) 12/31/18 18:55 Chloride 107 mmol/L (98-107) 12/31/18 18:55 Carbon Dioxide 25 mmol/L (21-32) 12/31/18 18:55 Anion Gap 6.0 (3-11) 12/31/18 18:55 BUN 27 mg/dl (7-18) H 12/31/18 18:55 Creatinine 1.05 mg/dl (0.6-1.4) 12/31/18 18:55 Est Cr Clr Drug Dosing 67.6 ml/min 12/31/18 18:55 Est GFR ( Amer) 83.0 12/31/18 18:55 Est GFR (Non-Af Amer) 71.6 12/31/18 18:55 BUN/Creatinine Ratio 25.9 (10-20) H 12/31/18 18:55 Glucose 87 mg/dl (70-99) 12/31/18 18:55 Calcium 8.5 mg/dl (8.5-10.1) 12/31/18 18:55 Total Bilirubin 0.7 mg/dl (0.2-1) 12/31/18 18:55 AST 20 U/L (15-37) 12/31/18 18:55 ALT 29 U/L (12-78) 12/31/18 18:55 Alkaline Phosphatase 98 U/L (45-117) 12/31/18 18:55 Total Protein 6.9 gm/dl (6.4-8.2) 12/31/18 18:55 Albumin 3.6 gm/dl (3.4-5.0) 12/31/18 18:55 Globulin 3.3 gm/dl (2.5-4.0) 12/31/18 18:55 Albumin/Globulin Ratio 1.1 (0.9-2) 12/31/18 18:55 Lipase 187 U/L (73-393) 12/31/18 18:55 Urine Color Yellow 12/31/18 20:46 Urine Appearance Clear (Clear) 12/31/18 20:46 Urine pH 7.0 (4.5-7.5) 12/31/18 20:46 Ur Specific [place] 1.015 (1.000-1.030) 12/31/18 20:46 Urine Protein Negative (Negative) 12/31/18 20:46 Urine Glucose (UA) Negative (Negative) 12/31/18 20:46 Urine Ketones Negative (Negative) 12/31/18 20:46 Urine Blood Negative (Negative) 12/31/18 20:46 Urine Nitrite Negative (Negative) 12/31/18 20:46 Urine Bilirubin Negative (Negative) 12/31/18 20:46 Urine Urobilinogen Negative (Negative) 12/31/18 20:46 Ur Leukocyte Esterase Negative (Negative) 12/31/18 20:46 Diagnostic Findings [place], [place] [phone] CT Scan Report Patient: JOSHUA TOWNSEND JRAdmit Date: 12/31/18 MR#: [id number]: [address] Acct ID:[id number]: [facility]: 1950[facility] Zip[facility] [place] [address] Age: 68Location: CT Sex: M Room/Bed: Att Phy: Antonino Jones M.D.Diagnosis: CONCUSSION, POSSIBLE SUBDURAL HEMATOMA Kimberly Phy: Antonino Jones M.D.Service Date: 12/31/18 Fam Phy: Interpreting Phy: Manuel Choi MD Admit Phy: Ordering Phy: Antonino Jones M.D. cc: ~ CT head/brain wo con CLINICAL HISTORY: Headache and pressure status post head trauma. Evaluate for subdural hematoma. COMPARISON STUDY: August 14, 2006 TECHNIQUE: Axial CT of the brain is performed from the vertex to the skull base. IV contrast was not administered for this examination. A dose lowering technique was utilized adhering to the principles of ALARA. CT DOSE: 729.78 mGycm FINDINGS: There is no CT evidence of acute cortical infarction. There is no midline shift. No calvarial fractures are visualized. There is an equivocal tiny isodense left frontal subdural hematoma measuring 3 mm in thickness. Posteriorly in image #17, there is an equivocal tiny posterior falcine subdural hematoma. An MRI is recommended in follow-up. There is no evidence of pathologic ventricular dilatation. There is no evidence of acute sinusitis IMPRESSION: 1. Equivocal tiny isodense left frontal subdural hematoma measuring 3 mm in thickness. An MRI is recommended in follow-up for confirmation. 2. No calvarial fractures identified. Electronically signed by: Manuel Choi M.D. 12/31/2018 6:07 PM Dictated: 12/31/18 1801 Transcribed: 12/31/18 1801 Medications Administered Home Medications Medication Instructions Recorded Confirmed aspirin [Aspir-81] 81 mg PO DAILY 12/31/18 12/31/18 cholecalciferol (vitamin D3) 1,000 unit PO DAILY 12/31/18 12/31/18 [Vitamin D3] xrxirorb-zdh-GK-lycopen-lutein 1 tab PO DAILY 12/31/18 12/31/18 [Centrum Silver Ultra Men's] Code Status & VTE Plan Code Status Full code VTE Prophylaxis Plan VTE Prophylaxis will be ordered: Yes
[2018-12-31] MEDS ORDERED: ACETAMINOPHEN 325 MG TAB PO PRN (22:57)
[2018-12-31] MEDS ORDERED: ALUMINUM/MAGNESIUM SUSP 30 ML UDC PO PRN (22:57)
[2018-12-31] MEDS ORDERED: POLYETHYLENE (MIRALAX) 17 GM PACK PO PRN (22:57)
[2018-12-31] MEDS ORDERED: MAGNESIUM HYDROXIDE SUSP 30 ML UDC PO PRN (22:57)
--- NOTE | 2018-12-31 23:54 | Emergency Department Note ---
Entered by Stacy Casas acting as a scribe for History of Present Illness General Chief complaint: Head Injury, Minor Time Seen by Provider: 12/31/18 18:27 Source: patient History of Present Illness Onset (ago): day(s) 6 Location: head Pain Consistency: + other (after falling while skiing) Quality: + other (left frontal subdural hemtoma) Associated symptoms: + other (Positive eye "feeling funny," motion sensitivity ( abated), head pain (abated). Negative LOC, neck pain. ) The patient is a 68 year old male who presents to the Emergency Room with complaints of a left frontal subdural hematoma. He reports 6 days ago, he was skiing in [facility] when he stopped, slipped, and went backwards. He states over the weekend, he did not feel unwell enough to go to the ED, so he went to Dr. Jones, Family Medicine today who ordered a CT. The patient reports Dr. Jones recommended he come to the ED as he states the CT showed a left frontal subdural hematoma. The patient reports his eye "feels funny" but denies any LOC, neck pain. He states he had motion sensitivity and pain in his head which he reports has abated. Pt regularly takes 1 baby aspirin. Home Medications Home Medications Medication Instructions Recorded Confirmed Type aspirin [Aspir-81] 81 mg PO DAILY 12/31/18 12/31/18 History cholecalciferol (vitamin D3) 1,000 unit PO DAILY 12/31/18 12/31/18 History [Vitamin D3] hphubebn-kev-AV-lycopen-lutein 1 tab PO DAILY 12/31/18 12/31/18 History [Centrum Silver Ultra Men's] Allergies Allergy/AdvReac Type Severity Reaction Status Date / Time bee venom protein (honey bee) Allergy Severe RASH, Verified 12/31/18 20:12 DIZZY, SOB cefuroxime Allergy Severe RASH AND Verified 12/31/18 20:12 DIFFICULTY BREATHING Past Med/Surg History Medical History Bee sting allergy (Chronic) Heart disease (Chronic) Incisional hernia (Resolved) History of kidney stones (Chronic) Surgical History History of mitral valve repair (Resolved) History of aortic valve repair (Resolved) H/O mitral valve replacement (Resolved) Family History Other Family history non-contributory Social History Current Living Situation: Spouse Other Information That Helps Us Care for You: No Feels Safe at Home: Yes Safety Concerns: Feels Safe At This Time Smoking Status: Never smoker Do You Dip or Chew Tobacco: No Second Hand Exposure: No Tobacco Cessation Education Requested by Patient: No Hx Alcohol Use: Yes Alcohol type: beer Alcohol Intake Frequency: a few times a week Hx Substance Use: No Beliefs That Will Affect Care: None Preferred Language: Faroese Communication Ability: Effective Ear Nose Throat Physician Required: No Review of Systems See HPI for pertinent positives & negatives. and A total of 10 systems reviewed and were otherwise negative Physical Exam Vital Signs Vital Signs - 24 hr 12/31/18 18:45 12/31/18 19:22 12/31/18 19:23 Temperature 36.8 C Temperature Source Oral Sepsis Recent Fever Within 48 Hours No Sepsis New/Unexplained Change in Mental Status No Sepsis Action Taken by Nursing No Action Required Pulse Rate 75 66 72 Pulse Rate [Left Apical] Pulse Rhythm [Left Apical] Pulse Strength [Left Apical] Respiratory Rate 18 18 17 Respiratory Effort / Characteristics Respiratory Depth Respiratory Pattern Blood Pressure 149/89 H 129/79 Blood Pressure Mean 109 95 Pulse Oximetry 100 99 98 Oxygen Delivery Method Room Air 12/31/18 19:30 12/31/18 19:31 12/31/18 20:00 Temperature Temperature Source Sepsis Recent Fever Within 48 Hours Sepsis New/Unexplained Change in Mental Status Sepsis Action Taken by Nursing Pulse Rate 70 71 70 Pulse Rate [Left Apical] Pulse Rhythm [Left Apical] Pulse Strength [Left Apical] Respiratory Rate 15 17 15 Respiratory Effort / Characteristics Respiratory Depth Respiratory Pattern Blood Pressure 138/82 131/77 Blood Pressure Mean 100 95 Pulse Oximetry 98 98 99 Oxygen Delivery Method 12/31/18 20:01 12/31/18 20:30 12/31/18 20:31 Temperature Temperature Source Sepsis Recent Fever Within 48 Hours Sepsis New/Unexplained Change in Mental Status Sepsis Action Taken by Nursing Pulse Rate 66 71 73 Pulse Rate [Left Apical] Pulse Rhythm [Left Apical] Pulse Strength [Left Apical] Respiratory Rate 18 20 20 Respiratory Effort / Characteristics Respiratory Depth Respiratory Pattern Blood Pressure 141/83 H Blood Pressure Mean 102 Pulse Oximetry 98 99 98 Oxygen Delivery Method 12/31/18 21:00 12/31/18 21:01 12/31/18 21:30 Temperature Temperature Source Sepsis Recent Fever Within 48 Hours Sepsis New/Unexplained Change in Mental Status Sepsis Action Taken by Nursing Pulse Rate 74 69 69 Pulse Rate [Left Apical] Pulse Rhythm [Left Apical] Pulse Strength [Left Apical] Respiratory Rate 24 21 18 Respiratory Effort / Characteristics Respiratory Depth Respiratory Pattern Blood Pressure 129/78 120/66 Blood Pressure Mean 95 84 Pulse Oximetry 97 97 95 Oxygen Delivery Method 12/31/18 21:31 12/31/18 23:08 Temperature 36.5 C Temperature Source Oral Sepsis Recent Fever Within 48 Hours Sepsis New/Unexplained Change in Mental Status Sepsis Action Taken by Nursing Pulse Rate 70 Pulse Rate [Left Apical] 71 Pulse Rhythm [Left Apical] Regular Pulse Strength [Left Apical] Normal Respiratory Rate 20 16 Respiratory Effort / Characteristics Non-Labored Spontaneous Respiratory Depth Normal Respiratory Pattern Regular Blood Pressure Blood Pressure Mean Pulse Oximetry 95 99 Oxygen Delivery Method Room Air GENERAL: alert, well appearing, well nourished, no distress, non-toxic HEAD: normal cephalic, atraumatic EYE EXAM: normal conjunctiva, PERRL and EOM's grossly intact OROPHARYNX: no exudate, no erythema, lips, buccal mucosa, and tongue normal and mucous membranes are moist EARS: TMs clear b/l NECK: supple, no nuchal rigidity, no adenopathy, non-tender CHEST: stable to compression anteriorly and posteriorly LUNGS: clear to auscultation. Normal chest wall mechanics HEART: no murmurs, S1 normal and S2 normal ABDOMEN: abdomen soft, non-tender, normo-active bowel sounds, no masses, no rebound or guarding. PELVIS: stable to compression anteriorly and posteriorly BACK: Back is symmetrical on inspection and there is no deformity, no midline tenderness, no CVA tenderness. UPPER EXTREMITIES: full active and passive range of motion of all joints without tenderness to palpation LOWER EXTREMITIES: full active and passive range of motion of all joints without tenderness to palpation NEURO EXAM: Normal sensorium, cranial nerves II-XII intact, normal speech, no weakness of arms, no weakness of legs. No drift. Finger to nose intact. Gross sensation intact. Rapid alternating movements of the upper extremities intact. ambulates without difficulty. GCS 15. Course ED COURSE: Vital signs were reviewed and showed hypertensive The patients medical record was reviewed The above diagnostic studies were performed and reviewed. ED treatments and interventions as stated above. 182: The patient was evaluated in room B12. A complete history and physical examination was performed. 1853: I reviewed the patient's case with Dr. Duong, [facility]. He recommends the patient be further evaluated as his symptoms have been improving. 2022: I reviewed the patient's case with Dr. Solis, [facility] Hospitalist. Dr. Pinon, [facility] Hospitalist will evaluate the patient for further management. 2024: Upon reevaluation, the patient is feeling better. I discussed my findings with the patient and he understands and agrees with the treatment plan. Based on the patients age, coexisting illnesses, exam and lab findings the decision to treat as an inpatient was made. The patient remained stable while under my care. The patient will be evaluated for further management. Consultations Consultation #1: I reviewed the patient's case with Dr. Duong, [facility]. He recommends the patient be further evaluated as his symptoms have been improving. Time: 18:54 Consultation #2: I reviewed the patient's case with Dr. Solis, [facility] Hospitalist. Dr. Pinon, [facility] Hospitalist will evaluate the patient for further management. Time: 20:23 Administered Medications Discontinued Medications Sodium Chloride (Nss 1000ml) 1,000 mls @ 999 mls/hr IV .Q1H1M DORITA Stop: 12/31/18 19:45 Last Infusion: 12/31/18 20:21 Dose: 0 mls/hr Admin: 12/31/18 19:15 Dose: 999 mls/hr Medical Decision Making Differential Diagnosis Differential diagnoses include major intracranial, cervical, spinal, thoracic, abdominal, pelvic and neurologic injury. Fracture, contusion, sprain, strain, laceration, abrasions included as well. Medical Records Attestation: I reviewed the patient's medical records. Home Medications Current Medication List: was personally reviewed by me Laboratory Data Attestation: I reviewed the patient's lab results. Result diagrams: 12/31/18 18:55 12/31/18 18:55 Lab Results 12/31/18 12/31/18 12/31/18 Range/Units 18:55 18:55 18:55 WBC 6.45 (4.8-10.8) K/uL RBC 4.96 (4.7-6.1) M/uL Hgb 15.4 (14.0-18.0) g/dL Hct 44.7 (42-52) % MCV 90.1 (80-100) fL MCH 31.0 (25-34) pg MCHC 34.5 (32-36) g/dL RDW Std Deviation 44.5 (36.4-46.3) fL RDW Coeff of Andrea 13.5 (11.5-14.5) % Plt Count 208 (130-400) K/uL MPV 10.0 (7.4-10.4) fL Immature Gran % (Auto) 0.2 % Neut % (Auto) 52.4 % Lymph % (Auto) 30.1 % [place] % (Auto) 12.1 % Eos % (Auto) 4.7 % Baso % (Auto) 0.5 % Immature Gran # (Auto) 0.01 (0.00-0.02) K/uL Neut # (Auto) 3.39 (1.4-6.5) K/uL Lymph # (Auto) 1.94 (1.2-3.4) K/uL [place] # (Auto) 0.78 H (0.11-0.59) K/uL Eos # (Auto) 0.30 (0-0.5) K/uL Baso # (Auto) 0.03 (0-0.2) K/uL PT Cancelled INR Cancelled APTT (21.0-31.0) Seconds PTT Ratio Sodium 138 (136-145) mmol/L Potassium 4.3 (3.5-5.1) mmol/L Chloride 107 (98-107) mmol/L Carbon Dioxide 25 (21-32) mmol/L Anion Gap 6.0 (3-11) BUN 27 H (7-18) mg/dl Creatinine 1.05 (0.6-1.4) mg/dl Est Cr Clr Drug Dosing 67.6 ml/min Est GFR ( Amer) 83.0 Est GFR (Non-Af Amer) 71.6 BUN/Creatinine Ratio 25.9 H (10-20) Glucose 87 (70-99) mg/dl Calcium 8.5 (8.5-10.1) mg/dl Total Bilirubin 0.7 (0.2-1) mg/dl AST 20 (15-37) U/L ALT 29 (12-78) U/L Alkaline Phosphatase 98 (45-117) U/L Total Protein 6.9 (6.4-8.2) gm/dl Albumin 3.6 (3.4-5.0) gm/dl Globulin 3.3 (2.5-4.0) gm/dl Albumin/Globulin Ratio 1.1 (0.9-2) Lipase 187 (73-393) U/L Urine Color Urine Appearance (Clear) Urine pH (4.5-7.5) Ur Specific [place] (1.000-1.030) Urine Protein (Negative) Urine Glucose (UA) (Negative) Urine Ketones (Negative) Urine Blood (Negative) Urine Nitrite (Negative) Urine Bilirubin (Negative) Urine Urobilinogen (Negative) Ur Leukocyte Esterase (Negative) 12/31/18 12/31/18 Range/Units 19:59 20:46 WBC (4.8-10.8) K/uL RBC (4.7-6.1) M/uL Hgb (14.0-18.0) g/dL Hct (42-52) % MCV (80-100) fL MCH (25-34) pg MCHC (32-36) g/dL RDW Std Deviation (36.4-46.3) fL RDW Coeff of Andrea (11.5-14.5) % Plt Count (130-400) K/uL MPV (7.4-10.4) fL Immature Gran % (Auto) % Neut % (Auto) % Lymph % (Auto) % [place] % (Auto) % Eos % (Auto) % Baso % (Auto) % Immature Gran # (Auto) (0.00-0.02) K/uL Neut # (Auto) (1.4-6.5) K/uL Lymph # (Auto) (1.2-3.4) K/uL [place] # (Auto) (0.11-0.59) K/uL Eos # (Auto) (0-0.5) K/uL Baso # (Auto) (0-0.2) K/uL PT 10.1 INR 1.0 APTT 26.6 (21.0-31.0) Seconds PTT Ratio 1.0 Sodium (136-145) mmol/L Potassium (3.5-5.1) mmol/L Chloride (98-107) mmol/L Carbon Dioxide (21-32) mmol/L Anion Gap (3-11) BUN (7-18) mg/dl Creatinine (0.6-1.4) mg/dl Est Cr Clr Drug Dosing ml/min Est GFR ( Amer) Est GFR (Non-Af Amer) BUN/Creatinine Ratio (10-20) Glucose (70-99) mg/dl Calcium (8.5-10.1) mg/dl Total Bilirubin (0.2-1) mg/dl AST (15-37) U/L ALT (12-78) U/L Alkaline Phosphatase (45-117) U/L Total Protein (6.4-8.2) gm/dl Albumin (3.4-5.0) gm/dl Globulin (2.5-4.0) gm/dl Albumin/Globulin Ratio (0.9-2) Lipase (73-393) U/L Urine Color Yellow Urine Appearance Clear (Clear) Urine pH 7.0 (4.5-7.5) Ur Specific [place] 1.015 (1.000-1.030) Urine Protein Negative (Negative) Urine Glucose (UA) Negative (Negative) Urine Ketones Negative (Negative) Urine Blood Negative (Negative) Urine Nitrite Negative (Negative) Urine Bilirubin Negative (Negative) Urine Urobilinogen Negative (Negative) Ur Leukocyte Esterase Negative (Negative) Blood Pressure Blood Pressure Findings: Elevated blood pressure Blood Pressure Disposition: further management by hospitalist Head Trauma GCS Score: 15 MDM Narrative Patient is a 68-year-old male that presents the ER referred in following having a CT by his PCP which shows a small subdural. Patient fell last Monday while skiing. He fell from standing backwards onto the ground. He notes that following this he had a severe headache and had hurt with changing positions and he felt a little unsteady. The symptoms have been gradually improving until today. They are almost completely gone at this time. Vitals were obtained and were unremarkable. He is completely neurologically intact. Labs were obtained and CBC along with INR BMP LFTs bilirubin lipase is unremarkable. UA was negative. I did review the CT. I discussed with Dr. Man from neurosurgery at [facility]. He recommends observing him over night and if symptoms continue to improve/to the same patient can be discharged home follow-up with [facility] as an outpatient. The number for him to contact once discharged is [phone]. Discussed with the hospitalist and neurology and patient was accepted for observation. He should also stop taking his aspirin until he follows up with neurosurgery per them. Impression & Plan Subdural hematoma Discharge Plan Visit Data *Final* Discharge Date/Time: 12/31/18 21:42 Chief Complaint: Head Injury, Minor ED Provider: Sha Martinez Discharge Problem: Subdural hematoma Patient Disposition: Admitted As Inpatient Discharge Instructions Interventions: ED Discharge Assessment Last Done: 12/31/18 21:42 The scribe's documentation has been prepared under my direction and personally reviewed by me in its entirety. I confirm that the note above accurately reflects all work, treatment, procedures, and medical decision making performed by me.
--- NOTE | 2019-01-01 07:13 | CT Scan Report ---
CT head/brain wo con CLINICAL HISTORY: Concussion. Possible subdural hematoma. ABNORMAL PRIOR CT SCAN. COMPARISON STUDY: CT scan dated 12/31/2018 TECHNIQUE: Axial CT of the brain is performed from the vertex to the skull base. IV contrast was not administered for this examination. A dose lowering technique was utilized adhering to the principles of ALARA. CT DOSE: 614.27 mGy.cm FINDINGS: A tiny isodense left convexity subdural hematoma is again suspected. As was previously stated this wo uld best be confirmed with an MRI scan. This measures 3 mm in maximal thickness. There is no midline shift. There is a suspected tiny parafalcine component. On the current study, this is best visualized anteriorly. There are patchy white matter hypodensities likely on a small vessel basis. There is no evidence of pathologic ventricular dilatation. There is no evidence of acute sinusitis IMPRESSION: No change in the suspected tiny left convexity subdural hematoma. Electronically signed by: Manuel Choi M.D. 01/01/2019 7:11 AM
[2019-01-01] MEDS ORDERED: CHOLECALCIFEROL 1,000 UNITS TAB PO SCH (09:00)
[2019-01-01] MEDS ORDERED: CEROVITE ADV FORMULA TAB PO SCH (09:00)
--- NOTE | 2019-01-01 11:40 | Neurology Consultation ---
Date of Consultation January 01, 2019 Assessment & Plan (1) Subdural hematoma: Patient had a fall with minor closed head trauma December 25 resulting in some minimal concussive type symptoms which are already resolving and a tiny left frontal/convexity subdural hematoma which is been unchanged over the last 24 hours. On physical exam he has no focal findings, meningeal signs, or encephalopathy. Is no longer symptomatic from this head trauma. Blood pressure was elevated on admission but is normal currently. Recommendations: 1. Hold aspirin until subdural hematoma is resolved. 2. Avoid exertion/increased activity until subdural resolved. 3. Control blood pressure as you are doing. 4. There is no need for additional neurologic testing or treatment at this time. I recommend follow-up with primary care physician repeating his CT in 2-3 weeks. Overall, I spent a total of 45 minutes with this case including review of records, review of CT scan, direct evaluation the patient at bedside and discussion of the case with the patient at bedside as well as clinical staff. History of Present Illness Reason for Consultation: This 68-year-old, who I was asked to see at the request of Dr. Pinon, for neurologic evaluation regarding subdural hematoma. Requesting Physician: Dr. Pinon Attending Physician: Brayan Doan MD History of Present Illness Patient has a history of mitral valve replacement in 2006. He has been on aspirin for years. He is doing very well with no active heart issues, hypertension, diabetes, stroke or ulcer disease. Patient is very active physically biking in good weather and skiing in the winter. He was in [facility] for a ski trip last week. On December 25 he came down the slope and hit some soft pattern is skis slipped out from under him and he hit his occiput on the ground. It was enough force to knock is goggles off , but he had no loss of consciousness or memory issues. Immediately after the incident he had no symptoms and continued skiing that day. The next day he had unusual sensation in his right frontal head but was not quite a headache. He could feel vibration when he was skiing or moving. He had no vision issues, weakness or numbness in the limbs, new tinnitus or balance problems. He did have some wooziness with certain head positions. On December 31, he had a CT scan as an outpatient by his primary care physician which showed a tiny left frontal subdural hematoma. He came to the emergency room. On December 31, at 1845 hours, blood pressure was 30 6.8, pulse 75, respiratory rate 18, blood pressure 149/89, and O2 saturation 100 percent. Neurologic examination was unremarkable. [facility] decided that he did not need to be transferred and nothing procedure really needed to be done. They recommended overnight observation. CBC and Chem profile were unremarkable. The repeat CT scan of the head this morning showed unchanged compared to yesterday CT scan of the head with the tiny left frontal/convexity subdural. I reviewed these films. The patient feels that he each day he gets a little bit better with the symptoms and has had less woozy feelings with movement and no headache. Allergies Allergy/AdvReac Type Severity Reaction Status Date / Time bee venom protein (honey bee) Allergy Severe RASH, Verified 12/31/18 20:12 DIZZY, SOB cefuroxime Allergy Severe RASH AND Verified 12/31/18 20:12 DIFFICULTY BREATHING Home Medications Home Medications Medication Instructions Recorded Confirmed Type aspirin [Aspir-81] 81 mg PO DAILY 12/31/18 12/31/18 History cholecalciferol (vitamin D3) 1,000 unit PO DAILY 12/31/18 12/31/18 History [Vitamin D3] puoclnht-ljr-TT-lycopen-lutein 1 tab PO DAILY 12/31/18 12/31/18 History [Centrum Silver Ultra Men's] Patient History Medical History Bee sting allergy (Chronic) Heart disease (Chronic) Incisional hernia (Resolved) History of kidney stones (Chronic) Sleep apnea Surgical History History of mitral valve repair (Resolved) History of aortic valve repair (Resolved) H/O mitral valve replacement (Resolved) Family History Mother Lung cancer Father , age 83 of stroke Stroke Other Family history non-contributory Social History Current Living Situation: Spouse current occupational status: retired Other Information That Helps Us Care for You: No Feels Safe at Home: Yes Safety Concerns: Feels Safe At This Time Smoking Status: Never smoker Do You Dip or Chew Tobacco: No Second Hand Exposure: No Tobacco Cessation Education Requested by Patient: No Hx Alcohol Use: Yes Alcohol type: beer Alcohol Intake Frequency: a few times a week Hx Substance Use: No Beliefs That Will Affect Care: None Preferred Language: Dominican Communication Ability: Effective [employer] Required: No Review of Systems Constitutional: no fever and no fatigue Eyes: no diplopia, no eye pain and no worsening vision Ear, Nose, Mouth, Throat: + tinnitus; no ear pain, no hearing loss and no dysphagia Respiratory: no cough and no dyspnea Cardiovascular: no chest pain, no dyspnea and no palpitations Gastrointestinal: no abdominal pain, no nausea and no vomiting Genitourinary (Male): no dysuria, no urinary frequency and no urinary incontinence Musculoskeletal: no back pain, no neck pain, no radicular pain, no myalgia, no muscle weakness and no muscle atrophy Integumentary: no rash and no lesions Neurologic: no gait abnormality, no falls, no localized weakness, no generalized weakness, no tingling, no numbness, no tremor(s), no abnormal movements, no dizziness, no headache(s), no abnormal speech, no behavioral changes, no confusion and no memory loss Psychiatric: no depression, no abnormal sleep pattern, no anxiety, no difficulty concentrating, no confusion and no hallucinations Endocrine: no fatigue and no flushing Hematologic / Lymphatic: no easy bleeding and no easy bruising Allergy / Immunological: no urticaria Physical Exam 2 Vital Signs (Past 24 Hours): Last Vital Signs Temp 36.8 C 01/01/19 11:07 Pulse 67 01/01/19 11:07 Resp 19 01/01/19 11:07 BP 128/75 01/01/19 11:07 Pulse Ox 97 01/01/19 11:07 Physical Exam: The patient is right-handed. The patient is awake, alert, and attentive. Speech is normal without any aphasia or dysarthria. Mentation and thought processes are intact, with full orientation and normal fund of knowledge. Attention and concentration are normal. Mood and affect are normal and appropriate. General appearance and grooming are normal. Short and long-term memory are intact. The discs are sharp with positive venous pulsations bilaterally. There are no exudates, hemorrhages, or blood vessel changes seen. Pupils are 4 mm bilaterally and reactive to light. Extraocular eye muscles are intact without nystagmus. Visual acuity and visual park seem normal grossly to confrontation. There are no deficits to sensation in the face in all 3 distributions of the fifth cranial nerve bilaterally. Corneal reflexes are positive bilaterally. Facial strength and symmetry was normal bilaterally. Hearing seems intact grossly to voice and finger rub bilaterally. Palate moves well without asymmetry. There is normal sternocleidomastoid and trapezius (shoulder shrug) strength bilaterally. Tongue is midline with good strength bilaterally. Neck has a full range of motion without discomfort. There are no cervical bruits bilaterally. There are no cranial or ocular bruits. Heart is without murmur. There is a regular rhythm and rate. Cervical, thoracic, and lumbar spine are nontender to palpation. Gait is narrow based, with good arm swing, turns, and stance. Balance is normal eyes open or closed. With outstretched arms there is no drift. There are no resting, postural, or action tremors. There is no ataxia with finger to nose testing. There is good facility in the hands. No other abnormal involuntary movements are noted. Motor strength is 5/5 diffusely in the arms bilaterally including deltoids, biceps, triceps, brachioradialis, wrist flexors and extensors, primary care provider, and intrinsic hand muscles. Motor strength is 5/5 diffusely in the legs bilaterally including hip flexors, quadriceps, hamstrings, gastrocnemius, tibialis anterior , tibialis posterior, and Peroneii muscles bilaterally. Toe extensors are normal and there is good bulk in the extensor digitorum brevis muscles bilaterally. The limbs have good tone without rigidity or spasticity. There is no atrophy noted in the muscles. Muscle bulk is normal, there is no tenderness to palpation , no myotonia to percussion, and no fasciculations seen. Sensory examination is intact to touch and pin throughout all 4 limbs diffusely. Reflexes are 1/4 in the biceps, triceps, brachioradialis, quadriceps, and Achilles tendons bilaterally. Toes are downgoing with plantar stimulation bilaterally. Peripheral pulses are present and of normal quality distally in all 4 limbs. There is no peripheral edema noted in the limbs. Results & Data Diagnostic Findings CT head/brain wo con CLINICAL HISTORY: Concussion. Possible subdural hematoma. ABNORMAL PRIOR CT SCAN. COMPARISON STUDY: CT scan dated 12/31/2018 TECHNIQUE: Axial CT of the brain is performed from the vertex to the skull base. IV contrast was not administered for this examination. A dose lowering technique was utilized adhering to the principles of ALARA. CT DOSE: 614.27 mGy.cm FINDINGS: A tiny isodense left convexity subdural hematoma is again suspected. As was previously stated this would best be confirmed with an MRI scan. This measures 3 mm in maximal thickness. There is no midline shift. There is a suspected tiny parafalcine component. On the current study, this is best visualized anteriorly. There are patchy white matter hypodensities likely on a small vessel basis. There is no evidence of pathologic ventricular dilatation. There is no evidence of acute sinusitis IMPRESSION: No change in the suspected tiny left convexity subdural hematoma. Electronically signed by: Mnauel Choi M.D. 01/01/2019 7:11 AM
--- NOTE | 2019-01-01 17:40 | Discharge Summary ---
Date of Service January 01, 2019 Admission HPI Per Admitting Provider The patient is a 68-year-old male who was skiing and previous [place] 6 days ago when he slipped and went backwards, landing on his shoulder and then his head. He went to see his PCP Dr. Emerson today, who ordered a CT scan, that showed a left frontal subdural hematoma, and referred the patient to the ED for assessment. The patient overall has little complaints, he said he feels a little funny, and has some cervical occipital pain, which has improved. Principal Diagnosis Subdural hematoma Discharge Exam Constitutional WD/WN, vitals as above Eyes EOM intact bilaterally; no conjunctival abnormality ENMT external ear and nose normal, oropharynx normal Neck trachea midline, no thyromegaly normal visual inspection Respiratory normal respiratory effort, lungs clear to auscultation no respiratory distress Cardiovascular RRR, no murmur, no edema Gastrointestinal (Abdomen) Inspection/Auscultation: abdomen normal to inspection; abdomen not distended Musculoskeletal no cyanosis or clubbing, extremities motor strength 5/5 Skin no rashes, warm and dry Neurologic moves all extremities and awake Psychiatric Orientation: alert, oriented to person and cooperative Discharge Data Allergies Allergy/AdvReac Type Severity Reaction Status Date / Time bee venom protein (honey bee) Allergy Severe RASH, Verified 12/31/18 20:12 DIZZY, SOB cefuroxime Allergy Severe RASH AND Verified 12/31/18 20:12 DIFFICULTY BREATHING Consultations 12/31/18 20:17 ED Decision to Admit Stat 12/31/18 22:57 Consult Case Management - Discharge Planning Routine Consult Neurology Routine Ordered Studies 01/01/19 07:00 CT head/brain wo con Routine Hospital Course (1) Subdural hematoma: Subdural hematoma - Repeat head CT on 01/01 showed stable bleeding. Hold aspirin for 4 weeks until repeat head CT with his PCP. - Discussed symptoms to watch out for and to seek immediate care Total Time Total Time Spent Total Time Spent (In Minutes): 40 Total Time Includes: Examination of the Patient, Discharge Planning, Medication Reconciliation and Communication With Other Providers Discharge Plan Discharge Items Patient Disposition: Home - Self-Care Reason For Visit: SUBDURAL HEMATOMA Discharge Diagnosis: Subdural hematoma Condition: Good Discharge Goals: Diagnostic testing and Improve function Activity: As commented below Activity Comment: No contact or high-impact activity and no sports until repeat head CT. Lifting: Wait until after follow-up appointment Bathing: No limitations Exercise/Sports: None Exercise Comment: Not until your repeat head CT shows your bleeding is resolved. Non-emergency contact: Primary Care Provider Call non-emergency contact if: your symptoms worsen, your pain is unusual for you and your temperature is above 100.5 Follow-up/Referrals: Antonino Jones [Primary Care Provider] - (Please follow up with Dr. Jones in 2-3 weeks for a repeat head CT scan.) Diet: Regular Addtl Provider Instructions: Mr. Pearce, You were admitted to the hospital with a subdural hematoma (meaning a bleed under the lining of the brain). This likely happened as a result of your fall during skiing. Great job on wearing a helmet, as it likely prevented a much more severe injury! We repeated your head CT, and the bleeding is stable/ stopped. It will take several weeks for the blood to get re-absorbed (kind of like a bruise as we discussed). Please do not take any aspirin for 3-[address] scan has returned to normal. Please see your PCP, Dr. Jones, in 2-3 weeks for a repeat head CT to make sure the bleed has been re-absorbed, and everything has returned to normal. Do not to any active sports (skiing) or other activities until the bleed has resolved. Please watch out for the "stroke-like" symptoms that we discussed. Those are: changes in strength or sensation in the limbs, trouble talking, trouble swallowing, vision changes, changes in alertness, or dizziness. If you have any of those issues, or other concerning symptoms, please return to the Emergency Department or call . Prescriptions: Continue cholecalciferol (vitamin D3) [Vitamin D3] 1,000 unit Capsule 1,000 unit PO DAILY RF: 0 hhozofdc-eyy-IK-lycopen-lutein [Centrum Silver Ultra Men's] 300-600-300 mcg Tablet 1 tab PO DAILY RF: 0 Discontinued aspirin [Aspir-81] 81 mg Tablet,Delayed Release (Dr/Ec) 81 mg PO DAILY RF: 0 Stand-Alone Forms: My [employer]/Other Patient Handouts: Hematoma Subdural Discharge Orders: Discharge Order (Routine); Ordered 01/01/19 Ordered By: Brayan Doan Admission Data Admit Date/Time: 12/31/18 21:20 Attending Provider: Brayan Doan. Admit Provider: Harvinder Pinon Primary Care Provider: Antonino Jones Other Providers: Kurt Martinez III ; Brayan Doan. Service: Telemetry Other Interventions: Discharge Summary Assessment (RN) Last Done: 01/01/19 13:42 DC Date/Time DO NOT enter until pt leaves facility: 01/01/19 14:13
== END 2019-01-01 14:13 | disposition home or self-care (01) ==
LOC: EDSEX → ED 18:26 → 2S 18:26 → SUATTDRO 21:20 → 2S 21:42